=== PATIENT | male | born 1955 | race Caucasian/White ===

== ENCOUNTER 2023-01-17 10:38 | Inpatient (IN) | payer MEDICARE, OTHER ==
[~2023-01-17] VITALS: Ht 190.5 cm; Wt 132.0 kg
[~2023-01-17 10:38] MED LIST: LORA-655
[2023-01-17 11:12] LABS: Basophils # (auto) 0 10 ^3/uL (0-0.2); Basophils % (auto) 0.6 % (0.0-2.0); Eosinophils # (auto) 0.1 10 ^3/uL (0-0.8); Eosinophils % (auto) 0.8 % (0.0-7.0); Hematocrit 40.1 % (41.0-53.0); Hemoglobin 13.5 g/dL (13.5-17.5); Lymphocytes # (auto) 1.2 10 ^3/uL (0.4-5.4); Lymphocytes % (auto) 16.8 % (10.0-50.0); Mean Corpuscular Hemoglobin 31.6 pg (28.0-32.0); Mean Corpuscular Hgb Conc. 33.5 g/dL (32.0-36.0); Mean Corpuscular Volume 94.2 fL (80.0-100.0); Monocytes # (auto) 0.5 10 ^3/uL (0-1.3); Monocytes % (auto) 7.1 % (0.0-12.0); Neutrophils # (auto) 5.5 10 ^3/uL (1.6-8.6); Neutrophils % (auto) 74.7 % (37.0-80.0); Red Blood Cells 4.26 10^6/uL (4.5-5.90); Red Cell Distribution Width 13.7 % (11.8-14.3); White Blood Cell 7.4 10^3/uL (4.4-10.8)
[2023-01-17 11:34] LABS: Albumin 3.6 g/dL (3.4-5.0); Potassium 3.5 mmol/L (3.5-5.1)
[2023-01-17 11:40] LABS: BUN/Creatinine Ratio 13.6 (10.0-20.0); Total Protein 6.2 g/dL (6.4-8.2)
[2023-01-17 14:05] VITALS: PULSE 92; RESP 18; O2SAT 96
[2023-01-17] MEDS ORDERED: cefTRIAXone 1GM/50ML D5W 50 ML IV ONE (15:00)
[2023-01-17] MEDS ORDERED: FUROSEMIDE 40 MG/4 ML VIAL IV ONE (15:00)
[2023-01-17] MEDS ORDERED: AZITHROMYCIN 500MG/ 250ML 250 ML IV ONE (15:00)
[2023-01-17] MEDS: InsuLIN REG 1unit/0.01ml Soln (100units/ml) SC SCH ×2 (17:00→21:34)
[2023-01-17] MEDS ORDERED: ENOXAPARIN SOD 40 MG/0.4 ML SYRINGE SC ONE (17:00)
[2023-01-17] MEDS: ACCU-CHEK COMFORT CURVE STRIP VI SCH ×2 (17:00→21:34)
[2023-01-17] MEDS ORDERED: DEXTROSE (50%) 50ML SYRG IV PRN (17:00)
[2023-01-17] MEDS ORDERED: MORPHINE SULFATE INJ 2 MG/ml SYRG IV PRN (17:00)
[2023-01-17] MEDS ORDERED: ACETAMINOPHEN 325 MG TAB PO PRN (17:00)
[2023-01-17] MEDS ORDERED: NITROGLYCERIN 0.4 MG SL TAB SL PRN (17:00)
[2023-01-17] MEDS: FUROSEMIDE 40 MG/4 ML VIAL IV SCH (18:00)
[2023-01-17 19:30] VITALS: PULSE 88; RESP 20; O2SAT 94
[2023-01-17] MEDS: METOPROLOL TARTRATE 25 MG TAB PO SCH (21:35)
[2023-01-17] MEDS: LORazepam 2MG/ML-1ML VIAL IV PRN (21:35)
[2023-01-17] MEDS ORDERED: IOHEXOL 350 MG/ML 100ML IJ ONE (23:33)
[2023-01-18 06:18] LABS: Basophils # (auto) 0 10 ^3/uL (0-0.2); Basophils % (auto) 0.7 % (0.0-2.0); Eosinophils # (auto) 0.1 10 ^3/uL (0-0.8); Eosinophils % (auto) 1.1 % (0.0-7.0); Hematocrit 40.2 % (41.0-53.0); Hemoglobin 13.7 g/dL (13.5-17.5); Lymphocytes % (auto) 16.2 % (10.0-50.0); Mean Corpuscular Hemoglobin 32.3 pg (28.0-32.0); Monocytes # (auto) 0.4 10 ^3/uL (0-1.3); Monocytes % (auto) 6.8 % (0.0-12.0); Neutrophils # (auto) 4.9 10 ^3/uL (1.6-8.6); Neutrophils % (auto) 75.2 % (37.0-80.0); Red Blood Cells 4.23 10^6/uL (4.5-5.90); Red Cell Distribution Width 13.7 % (11.8-14.3); White Blood Cell 6.5 10^3/uL (4.4-10.8)
[2023-01-18 06:23] LABS: Albumin 3.5 g/dL (3.4-5.0); Calcium 9.1 mg/dL (8.5-10.1); Potassium 3.5 mmol/L (3.5-5.1)
[2023-01-18 06:29] LABS: BUN/Creatinine Ratio 12.6 (10.0-20.0); Total Protein 6.5 g/dL (6.4-8.2)
[2023-01-18] MEDS: FUROSEMIDE 40 MG/4 ML VIAL IV SCH ×2 (07:06→18:49)
[2023-01-18] MEDS: InsuLIN REG 1unit/0.01ml Soln (100units/ml) SC SCH ×4 (07:07→22:38)
[2023-01-18] MEDS: ACCU-CHEK COMFORT CURVE STRIP VI SCH ×4 (07:12→22:38)
[2023-01-18] MEDS: cefTRIAXone 1GM/50ML D5W 50 ML IV SCH (09:20)
[2023-01-18] MEDS ORDERED: PANTOPRAZOLE 40 MG TAB PO SCH (10:00)
[2023-01-18] MEDS: AZITHROMYCIN 500MG/ 250ML 250 ML IV SCH (10:48)
[2023-01-18] MEDS: ENOXAPARIN SOD 40 MG/0.4 ML SYRINGE SC SCH (10:48)
[2023-01-18] MEDS: METOPROLOL TARTRATE 25 MG TAB PO SCH ×3 (10:49→22:39)
[2023-01-18] MEDS ORDERED: DIGOXIN (250MCG/ML) 2 ML AMPULE IV ONE (13:15)
[2023-01-18 20:00] VITALS: PULSE 84; PULSE 87; RESP 21
[2023-01-18 22:00] VITALS: BP 132/70; PULSE 87; RESP 21; TEMP 97.3; O2SAT 96
[2023-01-19] VITALS (7 sets, daily range): BP systolic 109–122; BP diastolic 65–89; PULSE 55–100; RESP 16–21; TEMP 98–98.4; O2SAT 95–96
[2023-01-19] MEDS: LORazepam 2MG/ML-1ML VIAL IV PRN ×2 (00:07→23:42)
[2023-01-19] MEDS: InsuLIN REG 1unit/0.01ml Soln (100units/ml) SC SCH ×4 (06:57→23:52)
[2023-01-19] MEDS: FUROSEMIDE 40 MG/4 ML VIAL IV SCH ×2 (06:57→17:13)
[2023-01-19] MEDS: ACCU-CHEK COMFORT CURVE STRIP VI SCH ×4 (06:57→23:38)
[2023-01-19] MEDS: ENOXAPARIN SOD 40 MG/0.4 ML SYRINGE SC SCH (08:43)
[2023-01-19] MEDS: METOPROLOL TARTRATE 25 MG TAB PO SCH ×2 (08:44→23:38)
[2023-01-19] MEDS: AZITHROMYCIN 500MG/ 250ML 250 ML IV SCH (08:45)
[2023-01-19] MEDS: cefTRIAXone 1GM/50ML D5W 50 ML IV SCH (08:45)
[2023-01-19] MEDS ORDERED: ATORVASTATIN 20 MG TAB PO SCH (22:00)
[2023-01-19] MEDS: APIXABAN 5 MG TAB PO SCH (23:37)
[2023-01-20 05:00] VITALS: BP 107/74; PULSE 79; RESP 20; TEMP 98; O2SAT 96
[2023-01-20] MEDS: InsuLIN REG 1unit/0.01ml Soln (100units/ml) SC SCH ×2 (06:26→11:30)
[2023-01-20] MEDS: ACCU-CHEK COMFORT CURVE STRIP VI SCH ×2 (06:26→11:30)
[2023-01-20] MEDS: FUROSEMIDE 40 MG/4 ML VIAL IV SCH (06:35)
[2023-01-20 08:00] VITALS: PULSE 70; PULSE 79; RESP 18
[2023-01-20 08:30] VITALS: BP 122/68; PULSE 54; RESP 18; TEMP 98.1; O2SAT 96
[2023-01-20] MEDS ORDERED: ATO40T PO (09:17)
[2023-01-20] MEDS ORDERED: APIX5TAB PO (09:17)
[2023-01-20] MEDS ORDERED: FURO1TAB31 PO (09:17)
[2023-01-20] MEDS ORDERED: POTA10TA51 PO (09:17)
[2023-01-20] MEDS ORDERED: AZIT500T66 PO (09:17)
[2023-01-20] MEDS ORDERED: METO25TA5 PO (09:17)
[2023-01-20] MEDS: APIXABAN 5 MG TAB PO SCH (09:46)
[2023-01-20] MEDS: cefTRIAXone 1GM/50ML D5W 50 ML IV SCH (09:46)
[2023-01-20] MEDS: METOPROLOL TARTRATE 25 MG TAB PO SCH (09:47)
[2023-01-20] MEDS: AZITHROMYCIN 500MG/ 250ML 250 ML IV SCH (09:52)
[2023-01-20 11:10] VITALS: BP 122/68; PULSE 54
[2023-01-20] MEDS ORDERED: ALBUTEROL SULF 2.5 MG/0.5ML(0.5%) NEB SOLN ONE (12:30)
[2023-01-20 13:30] VITALS: BP 122/66; PULSE 57; RESP 19; TEMP 97.8; O2SAT 92
[2023-01-21] MEDS ORDERED: AZITHROMYCIN 250 MG TAB PO SCH (10:00)
== END 2023-01-20 14:13 | disposition home or self-care (01) | DRG 291 ==
LOC: ER 10:38 → TELE 17:03 → TELE-CENTR 01-18 16:06
PROVIDERS: ADMIT Family Medicine; ATTEND Family Medicine
DX: I50.43 Acute on chronic combined systolic (congestive) and diastolic (congestive) heart failure (principal); J18.9 Pneumonia, unspecified organism; I48.91 Unspecified atrial fibrillation; E66.01 Morbid (severe) obesity due to excess calories; E11.65 Type 2 diabetes mellitus with hyperglycemia; E78.00 Pure hypercholesterolemia, unspecified; I25.10 Atherosclerotic heart disease of native coronary artery without angina pectoris; Z88.0 Allergy status to penicillin; Z83.3 Family history of diabetes mellitus; Z82.49 Family history of ischemic heart disease and other diseases of the circulatory system; Z87.891 Personal history of nicotine dependence; Z68.36 Body mass index [BMI] 36.0-36.9, adult
CPT/HCPCS: 36415; 71045; 71275; 80053; 80061; 82962; 83036; 83605; 83880; 84443; 84484; 85025; 85379; 87040; 93005; 93306; 93970; 96365; 96367; 96375; 99291; G0378; J0696; J1815

== ENCOUNTER → 2023-02-16 | Outpatient (CLI) | payer MEDICARE ==
[~2023-02-16] MED LIST changes: +APIX5TAB PO; +ATO40T PO; +AZIT500T66 PO; +FURO1TAB31 PO; +METO25TA5 PO; +POTA10TA51 PO
[2023-02-16 13:16] LABS: Chloride 106 mmol/L (98-107); Potassium 4.5 mmol/L (3.5-5.1); Sodium 139 mmol/L (136-145)
[2023-02-16 13:17] LABS: Anion Gap 9.9 (5-15); Carbon Dioxide 23.1 mmol/L (20-30)
[2023-02-16 13:22] LABS: Glucose 126 mg/dL (74-106)
[2023-02-16 13:23] LABS: BUN/Creatinine Ratio 21.1 (10.0-20.0); Blood Urea Nitrogen 27 mg/dL (9-23)
== END | disposition home or self-care (01) ==
LOC: LAB 11:15
PROVIDERS: ATTEND Internal Medicine
DX: E11.9 Type 2 diabetes mellitus without complications (principal)
CPT/HCPCS: 36415; 80048

== ENCOUNTER → 2023-06-02 | Outpatient (CLI) | payer SELFPAY ==
[2023-06-02 07:30] LABS: Basophils # (auto) 0 10 ^3/uL (0-0.2); Basophils % (auto) 0.8 % (0.0-2.0); Eosinophils # (auto) 0.1 10 ^3/uL (0-0.8); Hematocrit 43.6 % (41.0-53.0); Hemoglobin 14.8 g/dL (13.5-17.5); Lymphocytes # (auto) 1.3 10 ^3/uL (0.4-5.4); Lymphocytes % (auto) 22.2 % (10.0-50.0); Mean Corpuscular Hemoglobin 31.9 pg (28.0-32.0); Mean Corpuscular Volume 93.8 fL (80.0-100.0); Monocytes # (auto) 0.6 10 ^3/uL (0-1.3); Monocytes % (auto) 9.9 % (0.0-12.0); Neutrophils # (auto) 3.9 10 ^3/uL (1.6-8.6); Neutrophils % (auto) 65.1 % (37.0-80.0); Nucleated Red Blood Cells % 0.1 %; Red Blood Cells 4.64 10^6/uL (4.5-5.90)
[2023-06-02 08:23] LABS: Alanine Aminotransferase 30 U/L (7-40); Albumin 4.5 g/dL (3.2-4.8); Alkaline Phosphatase 122 U/L (46-116); Calcium 9.8 mg/dL (8.5-10.1); Carbon Dioxide 22 mmol/L (20-30); Chloride 108 mmol/L (98-107); Glucose 149 mg/dL (74-106); LDL Cholesterol 78 mg/dL (< 100); Potassium 4.2 mmol/L (3.5-5.1); Sodium 139 mmol/L (136-145); Triglycerides 100 mg/dL (< 150)
[2023-06-02 08:24] LABS: Anion Gap 9 (5-15); Aspartate Aminotransferase 18 U/L (13-40); BUN/Creatinine Ratio 13.9 (10.0-20.0); Blood Urea Nitrogen 15 mg/dL (9-23); Cholesterol 130 mg/dL (< 200); HDL Cholesterol 32 mg/dL (40-59); Total Protein 6.8 g/dL (5.7-8.2)
== END | disposition home or self-care (01) ==
LOC: LAB 07:06
PROVIDERS: ATTEND Internal Medicine
DX: Z12.11 Encounter for screening for malignant neoplasm of colon (principal); E11.9 Type 2 diabetes mellitus without complications
CPT/HCPCS: 36415; 80053; 80061; 83036; 84153; 85025

== ENCOUNTER → 2023-11-16 | Outpatient (CLI) | payer MEDICAID ==
[~2023-11-16] MED LIST changes: -ATO40T PO; +ATOR-507 PO; +POTA-36 PO; -POTA10TA51 PO
== END | disposition home or self-care (01) ==
LOC: LAB 16:17
PROVIDERS: ATTEND Internal Medicine
DX: Z12.11 Encounter for screening for malignant neoplasm of colon (principal); E11.9 Type 2 diabetes mellitus without complications; I50.9 Heart failure, unspecified
CPT/HCPCS: 82270

== ENCOUNTER → 2024-02-09 | Outpatient (CLI) | payer MEDICAID ==
[2024-02-09 07:48] LABS: Triglycerides 119 mg/dL (< 150)
[2024-02-09 07:49] LABS: LDL Cholesterol 95 mg/dL (< 100)
[2024-02-09 07:50] LABS: Cholesterol 161 mg/dL (< 200); HDL Cholesterol 41 mg/dL (40-59)
== END | disposition home or self-care (01) ==
LOC: LAB 07:00
PROVIDERS: ATTEND Internal Medicine
DX: E11.22 Type 2 diabetes mellitus with diabetic chronic kidney disease (principal); N18.2 Chronic kidney disease, stage 2 (mild)
CPT/HCPCS: 36415; 80061; 82306; 82607; 83036

== ENCOUNTER → 2024-03-09 | Outpatient (CLI) | payer MEDICAID | END | disposition home or self-care (01) | LOC: LAB 09:29 | PROVIDERS: ATTEND Internal Medicine | DX: R53.83 Other fatigue (principal) | CPT/HCPCS: 36415; 84403; 84443 ==

== ENCOUNTER → 2024-06-04 | Outpatient (CLI) | payer MEDICAID ==
[2024-06-04 09:15] LABS: Triglycerides 87 mg/dL (< 150)
[2024-06-04 09:16] LABS: LDL Cholesterol 50 mg/dL (< 100)
[2024-06-04 09:17] LABS: Cholesterol 116 mg/dL (< 200); HDL Cholesterol 43 mg/dL (40-59)
== END | disposition home or self-care (01) ==
LOC: LAB 07:57
PROVIDERS: ATTEND Internal Medicine
DX: E11.9 Type 2 diabetes mellitus without complications (principal); E78.5 Hyperlipidemia, unspecified
CPT/HCPCS: 36415; 80061; 83036; 83880

== ENCOUNTER → 2024-07-17 | Outpatient (CLI) | payer MEDICAID ==
[2024-07-17 09:04] LABS: Alanine Aminotransferase 31 U/L (7-40); Albumin 4.7 g/dL (3.2-4.8); Alkaline Phosphatase 82 U/L (46-116); Anion Gap 9 (5-15); Aspartate Aminotransferase 25 U/L (13-40); BUN/Creatinine Ratio 14.7 (10.0-20.0); Blood Urea Nitrogen 17 mg/dL (9-23); Carbon Dioxide 22 mmol/L (20-31); Glucose 102 mg/dL (74-106); Potassium 4.3 mmol/L (3.5-5.1); Sodium 139 mmol/L (136-145)
[2024-07-17 09:05] LABS: Bilirubin, Total 0.7 mg/dL (0.2-1.0); Total Protein 6.9 g/dL (5.7-8.2)
[2024-07-17 09:06] LABS: Calcium 10.5 mg/dL (8.7-10.4); Chloride 108 mmol/L (98-107)
[2024-07-17 09:34] LABS: Creatinine, Urine 20.45 mg/dL (30.0-125.0)
[2024-07-17 09:40] LABS: Micro Albumin < 3.0 mg/L (<30.0)
== END | disposition home or self-care (01) ==
LOC: LAB 07:48
PROVIDERS: ATTEND Internal Medicine
DX: E11.9 Type 2 diabetes mellitus without complications (principal); E78.5 Hyperlipidemia, unspecified
CPT/HCPCS: 36415; 80053; 82043; 82570; 83036

== ENCOUNTER → 2024-09-26 | Outpatient (CLI) | payer BC ==
[~2024-09-26] VITALS: Ht 190.5 cm; Wt 117.9 kg
[~2024-09-26] MED LIST changes: +REGADENOSON 0.4 MG/5 ML SYRG IV ONE
[2024-09-26] MEDS: REGADENOSON 0.4 MG/5 ML SYRG IV ONE (08:41)
== END | disposition home or self-care (01) ==
LOC: XYW 07:12
PROVIDERS: ATTEND Student in an Organized Health Care Education/Training Program
DX: I11.0 Hypertensive heart disease with heart failure (principal); I50.9 Heart failure, unspecified; R07.9 Chest pain, unspecified; I48.0 Paroxysmal atrial fibrillation
CPT/HCPCS: 93017; J2785

== ENCOUNTER → 2024-10-01 | Outpatient (CLI) | payer BC ==
[~2024-10-01] MED LIST changes: -REGADENOSON 0.4 MG/5 ML SYRG IV ONE
[2024-10-01 07:25] LABS: Calcium 10.1 mg/dL (8.7-10.4); Chloride 106 mmol/L (98-107); Potassium 4.3 mmol/L (3.5-5.1); Sodium 138 mmol/L (136-145)
[2024-10-01 07:26] LABS: Anion Gap 9 (5-15); Carbon Dioxide 23 mmol/L (20-31)
[2024-10-01 07:31] LABS: BUN/Creatinine Ratio 11.5 (10.0-20.0); Blood Urea Nitrogen 14 mg/dL (9-23); Glucose 102 mg/dL (74-106)
== END | disposition home or self-care (01) ==
LOC: LAB 06:24
PROVIDERS: ATTEND Student in an Organized Health Care Education/Training Program
DX: Z01.812 Encounter for preprocedural laboratory examination (principal); I77.810 Thoracic aortic ectasia
CPT/HCPCS: 36415; 80048

== ENCOUNTER 2024-12-12 06:19 | Outpatient (CLI) | payer BC ==
[2024-12-12 07:26] LABS: Basophils # (auto) 0.1 10 ^3/uL (0-0.2); Basophils % (auto) 0.9 % (0.0-2.0); Eosinophils # (auto) 0.1 10 ^3/uL (0-0.8); Eosinophils % (auto) 1.9 % (0.0-7.0); Hematocrit 47.6 % (41.0-53.0); Hemoglobin 16.1 g/dL (13.5-17.5); Lymphocytes # (auto) 1.3 10 ^3/uL (0.4-5.4); Lymphocytes % (auto) 22.8 % (10.0-50.0); Mean Corpuscular Hemoglobin 31.6 pg (28.0-32.0); Mean Corpuscular Hgb Conc. 33.9 g/dL (32.0-36.0); Mean Corpuscular Volume 93.2 fL (80.0-100.0); Monocytes # (auto) 0.7 10 ^3/uL (0-1.3); Monocytes % (auto) 11.7 % (0.0-12.0); Neutrophils # (auto) 3.6 10 ^3/uL (1.6-8.6); Neutrophils % (auto) 62.7 % (37.0-80.0); Nucleated Red Blood Cells % 0.1 %; Platelet Count (auto) 156 10^3/uL (140-450); Red Blood Cells 5.11 10^6/uL (4.5-5.90); Red Cell Distribution Width 14.7 % (11.8-14.3); White Blood Cell 5.7 10^3/uL (4.4-10.8)
[2024-12-12 07:48] LABS: Alanine Aminotransferase 21 U/L (7-40); Alkaline Phosphatase 94 U/L (46-116); Anion Gap 10 (5-15); Blood Urea Nitrogen 11 mg/dL (9-23); Calcium 10.3 mg/dL (8.7-10.4); Carbon Dioxide 24 mmol/L (20-31); Glucose 92 mg/dL (74-106); Sodium 142 mmol/L (136-145); Triglycerides 107 mg/dL (< 150)
[2024-12-12 07:49] LABS: Albumin 4.5 g/dL (3.2-4.8); Aspartate Aminotransferase 21 U/L (<34); LDL Cholesterol 52 mg/dL (< 100); Total Protein 6.5 g/dL (5.7-8.2)
[2024-12-12 07:50] LABS: Bilirubin, Total 0.8 mg/dL (0.2-1.0); Cholesterol 107 mg/dL (< 200)
[2024-12-12 07:58] LABS: Bilirubin, Direct 0.3 mg/dL (<0.3); Chloride 108 mmol/L (98-107); HDL Cholesterol 34 mg/dL (40-59)
== END 2024-12-12 17:00 | disposition home or self-care (01) ==
LOC: LAB 06:19
PROVIDERS: ATTEND Specialist
DX: I11.0 Hypertensive heart disease with heart failure (principal); E11.9 Type 2 diabetes mellitus without complications; I50.20 Unspecified systolic (congestive) heart failure; E78.5 Hyperlipidemia, unspecified; E03.9 Hypothyroidism, unspecified; R68.89 Other general symptoms and signs
CPT/HCPCS: 36415; 80053; 80061; 82248; 83036; 84443; 85025

== ENCOUNTER 2025-01-16 10:27 | Outpatient (CLI) | payer BC ==
[2025-01-16 11:40] LABS: Potassium 4.1 mmol/L (3.5-5.1); Sodium 142 mmol/L (136-145)
[2025-01-16 11:41] LABS: Anion Gap 10 (5-15); Carbon Dioxide 24 mmol/L (20-31)
[2025-01-16 11:42] LABS: Calcium 10.3 mg/dL (8.7-10.4)
[2025-01-16 11:46] LABS: BUN/Creatinine Ratio 18.5 (10.0-20.0); Blood Urea Nitrogen 20 mg/dL (9-23); Glucose 95 mg/dL (74-106)
[2025-01-16 11:47] LABS: Chloride 108 mmol/L (98-107)
== END 2025-01-16 17:00 | disposition home or self-care (01) ==
LOC: LAB 10:27
PROVIDERS: ATTEND Internal Medicine
DX: I50.42 Chronic combined systolic (congestive) and diastolic (congestive) heart failure (principal); E78.5 Hyperlipidemia, unspecified
CPT/HCPCS: 36415; 80048

== ENCOUNTER 2025-02-01 09:12 | Outpatient (CLI) | payer BC | END 2025-02-01 17:00 | disposition home or self-care (01) | LOC: LAB 09:12 | PROVIDERS: ATTEND Internal Medicine | DX: R79.89 Other specified abnormal findings of blood chemistry (principal) | CPT/HCPCS: 36415; 84403 ==

== ENCOUNTER 2025-03-22 06:06 | Outpatient (CLI) | payer BC ==
[2025-03-22 07:01] LABS: Triglycerides 67 mg/dL (< 150)
[2025-03-22 07:03] LABS: Cholesterol 115 mg/dL (< 200); HDL Cholesterol 50 mg/dL (40-59)
== END 2025-03-22 17:00 | disposition home or self-care (01) ==
LOC: LAB 06:06
PROVIDERS: ATTEND Internal Medicine
DX: E78.5 Hyperlipidemia, unspecified (principal)
CPT/HCPCS: 36415; 80061

== ENCOUNTER → 2025-04-15 | Outpatient (CLI) | payer BC | END | disposition home or self-care (01) | LOC: LAB 13:19 | PROVIDERS: ATTEND Internal Medicine | DX: Z12.11 Encounter for screening for malignant neoplasm of colon (principal) | CPT/HCPCS: 82270 ==